=== PATIENT | male | born 1970 | race Caucasian/White ===

== ENCOUNTER 2018-08-25 19:42 | Emergency (ER) | payer BC ==
[2018-08-25 19:59] VITALS: RESP 18; TEMP 99.1
[2018-08-25] MEDS ORDERED: Sodium Chloride 0.9% 1,000 ML IV ONE (20:06)
--- NOTE | 2018-08-25 20:08 | C.PDOC ---
History Of Present Illness 47-year-old male presents to the ED for evaluation of abdominal pain which began two days ago. Patient describes his symptoms as an intermittent sharp, stabbing pain mostly arond his epigastric region. Patient also reports slight diarrhea. He denies fever, chills, or any other complaints at this time. Time Seen by Provider: 08/25/18 19:56 Chief Complaint (Nursing): Abdominal Pain History Per: Patient History/Exam Limitations: no limitations Onset/Duration Of Symptoms: Days (2), Intermittent Episodes Current Symptoms Are (Timing): Still Present Location Of Pain/Discomfort: Epigastric Quality Of Discomfort: Sharp, Stabbing, "Pain" Associated Symptoms: Diarrhea. denies: Fever, Chills Additional History Per: Patient Past Medical History Reviewed: Historical Data, Nursing Documentation, Vital Signs Vital Signs: Last Vital Signs Temp 99.1 F 08/25/18 19:56 Pulse 74 08/25/18 19:56 Resp 18 08/25/18 19:56 BP 118/74 08/25/18 19:56 Pulse Ox 95 08/25/18 19:56 Primary Care Provider: Clinic,Med [facility] - Medical History PMH: Asthma Surgical History: Appendectomy Family History: States: Unknown Family Hx - Social History Hx Alcohol Use: Yes Hx Substance Use: No - Immunization History Hx Tetanus Toxoid Vaccination: No Hx Influenza Vaccination: No Hx Pneumococcal Vaccination: No Review Of Systems Constitutional: Negative for: Fever, Chills Gastrointestinal: Positive for: Abdominal Pain (epigastric ) Physical Exam - Physical Exam Appears: Non-toxic, No Acute Distress Skin: Normal Color, Warm, Dry Head: Atraumatic, Normacephalic Eye(s): bilateral: Normal Inspection Oral Mucosa: Moist Neck: Supple Chest: Symmetrical, No Deformity, No Tenderness Cardiovascular: Rhythm Regular, No Murmur Respiratory: Normal Breath Sounds, No Rales, No Rhonchi, No Wheezing Gastrointestinal/Abdominal: Soft, Tenderness (epigastric ), No Guarding, No Rebound Extremity: Normal ROM, Capillary Refill (less than 2 seconds ) Neurological/Psych: Oriented x3, Normal Speech, Normal Cognition ED Course And Treatment - Laboratory Results Result Diagrams: 08/25/18 20:30 08/25/18 20:30 O2 Sat by Pulse Oximetry: 95 (on RA) Pulse Ox Interpretation: Normal Medical Decision Making Medical Decision Making: suspect gsatris pnacreatisi gallballder pahtology Progress: Bloodwork, urinalysis and Abdominal Ultrasound ordered and reviewed. Protonix IVP and IV Fluids given. labs neg us neg. pt improved in er. declines further ct scan. asking specif ically for dc will return with worsening. s/p appendectomy in past. nromal bs. no distention. Disposition - Disposition Referrals: Hugo Diaz MD [Staff Provider] - Disposition: HOME/ ROUTINE Disposition Time: 20:00 Condition: STABLE Additional Instructions: return to er with worsening. please see specialist. Prescriptions: Famotidine [Pepcid] 20 mg PO DAILY #20 tab Instructions: Acute Abdomen (Belly Pain) Forms: [employer] (Portuguese) - Clinical Impression Clinical Impression: Abdominal pain - Scribe Statement The provider has reviewed the documentation as recorded by the Scribe (Octavia Joseph) Provider Attestation: All medical record entries made by the Scribe were at my direction and personally dictated by me. I have reviewed the chart and agree that the record accurately reflects my personal performance of the history, physical exam, medical decision making, and the department course for this patient. I have also personally directed, reviewed, and agree with the discharge instructions and disposition.
[2018-08-25] MEDS ORDERED: Sodium Chloride 0.9% 1,000 ML ONE (20:28)
[2018-08-25 20:37] LABS: BASO % 0.6 % (0.0-2.0); EOS # 0.3 K/uL (0.0-0.7); EOS % 4.8 % (0.0-4.0); HEMOGLOBIN 13.9 g/dL (12.0-18.0); LYMPH # 1.3 K/uL (1.0-4.3); LYMPH % 23.9 % (20.0-40.0); MEAN CELL VOLUME 86.1 fL (80.0-94.0); MEAN CORPUSCULAR HEMOGLOBIN 29.9 pg (27.0-31.0); MEAN CORPUSCULAR HGB CONC 34.7 g/dL (33.0-37.0); MONO # 0.6 K/uL (0.0-0.8); MONO % 11.6 % (0.0-10.0); NEUT # 3.2 K/uL (1.8-7.0); NEUT % 59.1 % (50.0-75.0); RBC 4.64 Mil/uL (4.40-5.90); RED CELL DISTRIBUTION WIDTH 12.8 % (11.5-14.5); WHITE BLOOD COUNT 5.4 K/uL (4.8-10.8)
[2018-08-25 20:44] LABS: INR 1.1; PARTIAL THROMBOPLASTIN TIME 29.8 SECONDS (21-34); PROTHROMBIN TIME 12.1 SECONDS (9.7-12.2)
[2018-08-25 20:59] LABS: ALB/GLOB RATIO 1.3 (1.0-2.1); ALBUMIN 4.2 g/dL (3.5-5.0); ALT/SGPT 24 U/L (21-72); AST/SGOT 44 U/L (17-59); BILIRUBIN,DIRECT 0.3 mg/dL (0.0-0.4); BLOOD UREA NITROGEN 18 mg/dL (9-20); CALCIUM 9.2 mg/dl (8.6-10.4); GFR NON-AFRICAN AMERICAN > 60; LIPASE 89 U/L (23-300)
[2018-08-25 22:52] VITALS: BP 121/78; PULSE 72
[2018-08-25 22:58] VITALS: O2SAT 95
--- NOTE | 2018-08-26 10:51 | US ---
HISTORY: upper abd pain COMPARISON: None available. TECHNIQUE: Sonographic evaluation of the abdomen. FINDINGS: LIVER: Measures 16.6 cm in sagittal dimension. Echogenic liver may be seen in setting of hepatic parenchymal disease or fatty infiltration. No focal hepatic mass identified. The main portal vein appears patent with normal directional flow. No intrahepatic bile duct dilatation. GALLBLADDER: Gallstones and or sludge. No gallbladder wall thickening. Negative sonographic Slater's sign as assessed by the instrument lens inspector. COMMON BILE DUCT: Measures 4 mm. PANCREAS: Not well visualized. RIGHT KIDNEY: Measures 12.4 x 5.3 x 5.0cm. No calculus or hydronephrosis identified. LEFT KIDNEY: Measures 12.8 x 5.8 x 5.1cm. No calculus or hydronephrosis identified. SPLEEN: Measures approximately 16.4 cm. AORTA: Limited views appear unremarkable. IVC: Limited views appear unremarkable. OTHER FINDINGS: None. IMPRESSION: Echogenic liver may be seen in setting of hepatic parenchymal disease or fatty infiltration. Splenomegaly. Cholelithiasis and or sludge. No evidence of gallbladder wall thickening and/or pericholecystic edema. Negative sonographic Slater's sign as assessed by the instrument lens inspector. Preliminary impression was provided by [email or web address]. Study marked for PA review.
== END 2018-08-25 22:46 | disposition home or self-care (01) ==
LOC: C.ER 19:42
DX: R10.13 Epigastric pain (principal)
CPT/HCPCS: 76700; 80053; 82248; 83690; 85025; 85610; 85730; 96374; 99284; C9113; J7030

== ENCOUNTER 2018-08-29 07:13 | Outpatient (CLI) | payer BC | END 2018-08-29 07:14 | disposition home or self-care (01) | LOC: C.LAB 07:13 | DX: E66.9 Obesity, unspecified (principal) ==